=== PATIENT | female | born 1980 | race Caucasian/White ===

== ENCOUNTER → 2019-11-04 | Outpatient (CLI) | payer OTHER | LOC: ORTHO 08:13 | PROVIDERS: ATTEND Orthopaedic Surgery | DX: M65.872 Other synovitis and tenosynovitis, left ankle and foot (principal); Z90.710 Acquired absence of both cervix and uterus; Z90.89 Acquired absence of other organs; Z90.49 Acquired absence of other specified parts of digestive tract | CPT/HCPCS: 99203 ==

== ENCOUNTER → 2019-11-25 | Outpatient (CLI) | payer OTHER | LOC: ORTHO 09:58 | PROVIDERS: ATTEND Orthopaedic Surgery | DX: S42.145A Nondisplaced fracture of glenoid cavity of scapula, left shoulder, initial encounter for closed fracture (principal); M75.41 Impingement syndrome of right shoulder; X58.XXXA Exposure to other specified factors, initial encounter ==